=== PATIENT | male | born 1940 | race African-American/Black ===

== ENCOUNTER 2016-12-16 10:08 | Emergency (ER) | payer OTHER ==
[2016-12-16] MEDS ORDERED: APAP325 MG PO (10:28)
[2016-12-16] MEDS ORDERED: ALENDRONATE SOD70 M2 PO (10:28)
[2016-12-16] MEDS ORDERED: LIPI20 PO (10:29)
[2016-12-16] MEDS ORDERED: NOR10 PO (10:29)
[2016-12-16] MEDS ORDERED: FIBERLAX PO (10:30)
[2016-12-16] MEDS ORDERED: CALCIUM/VITAMIN1 TA2 PO (10:30)
[2016-12-16] MEDS ORDERED: CAPSAICIN0.075% TOP (10:31)
[2016-12-16] MEDS ORDERED: MOM PO (10:32)
[2016-12-16] MEDS ORDERED: HYDROCORTISONE2.51 TOP (10:32)
[2016-12-16 11:26] VITALS: BP 116/47
== END 2016-12-16 11:26 | disposition home or self-care (01) ==
LOC: ED 10:08
DX: R06.02 Shortness of breath (principal); I10 Essential (primary) hypertension; E11.9 Type 2 diabetes mellitus without complications; Z79.899 Other long term (current) drug therapy

== ENCOUNTER 2016-12-16 23:13 | Inpatient (IN) | payer OTHER ==
[~2016-12-16 23:13] MED LIST: ALENDRONATE SOD70 M2 PO; APAP325 MG PO; CALCIUM/VITAMIN1 TA2 PO; CAPSAICIN0.075% TOP; FIBERLAX PO; HYDROCORTISONE2.51 TOP; LIPI20 PO; MOM PO; NOR10 PO
[2016-12-16 23:45] VITALS: BP 101/48
[2016-12-17 00:29] LABS: ALKALINE PHOSPHATASE 107 U/L (46-116); ALT/SGPT 130 U/L (16-63); AST/SGOT 168 U/L (15-37); BILIRUBIN TOTAL 1.1 mg/dL (0.20-1.00); CALCIUM 9.2 mg/dL (8.5-10.1); CARBON DIOXIDE 11.4 mmol/L (21-32); CHLORIDE SERUM 105 mmol/L (98-107); GLUCOSE SERUM 70 mg/dL (74-106); SODIUM SERUM 135 mmol/L (136-145); T4(THYROXINE) 5.1 ug/dL (4.7-13.3)
[2016-12-17 00:43] LABS: BAND NEUTROPHIL 1 % (0-10); METAMYELOCTE 1 % (0-2); SEGMENTED NEUTROPHILS 3 % (37-75)
[2016-12-17 00:45] LABS: rbc morphology (normal/abnorm) ABNORMAL (NORMAL)
[2016-12-17 00:46] LABS: ovalocyte/elliptocyte 1+
[2016-12-17 00:47] LABS: PLATELET MORPHOLOGY PLATELETS DECREASED; tear drop cell (dacryocyte) 1+
[2016-12-17 00:52] LABS: ALBUMIN 2.1 g/dL (3.4-5.0); POTASSIUM SERUM 6.5 mmol/L (3.5-5.1); TOTAL PROTEIN, SERUM 9.1 g/dL (6.4-8.2)
[2016-12-17 01:02] LABS: PLATELET COUNT 31 x10^3mcL (130-400)
[2016-12-17 01:05] LABS: PATH REVIEW for HEMA YES
[2016-12-17 01:23] VITALS: BP 114/72
[2016-12-17 01:28] LABS: UA SPECIFIC GRAVITY 1.025 (1.005-1.035); microscopic required? YES; urine erythrocyte 3+ (NEGATIVE)
[2016-12-17 05:26] VITALS: BP 114/72
== END 2016-12-17 03:57 | disposition expired | DRG 871 ==
LOC: ED 23:13 → IC 12-17 01:14
PROVIDERS: Emergency Medicine; ADMIT Internal Medicine
DX: A41.9 Sepsis, unspecified organism (principal); J18.9 Pneumonia, unspecified organism; I21.4 Non-ST elevation (NSTEMI) myocardial infarction; J96.91 Respiratory failure, unspecified with hypoxia; M62.82 Rhabdomyolysis; D61.818 Other pancytopenia; N17.9 Acute kidney failure, unspecified; D64.9 Anemia, unspecified; E11.649 Type 2 diabetes mellitus with hypoglycemia without coma; D69.6 Thrombocytopenia, unspecified; H40.9 Unspecified glaucoma; M81.0 Age-related osteoporosis without current pathological fracture; I10 Essential (primary) hypertension
CPT/HCPCS: 31500; 36600; 82962; 83880; 85060; 87804; J0461; J1815; J2543; J2930; J3490; J7030; Q0092